=== PATIENT | male | born 1995 | race Caucasian/White ===

== ENCOUNTER 2017-07-19 18:34 | Emergency (ER) | payer SELFPAY ==
[~2017-07-19] VITALS: Ht 182.9 cm; Wt 67.7 kg
[2017-07-19 18:36] VITALS: BP 127/80; PULSE 152; RESP 18; TEMP 101.7; O2SAT 98
[2017-07-19 19:42] VITALS: PULSE 104; RESP 20; O2SAT 100
[2017-07-19] MEDS ORDERED: ACETAMINOPHEN 500 MG CPLT PO ONE (19:45)
[2017-07-19] MEDS ORDERED: OSEL75 PO (20:12)
--- NOTE | 2017-07-19 20:13 | PD ---
HPI Chief Complaint: Cold / Flu Symptoms Time Seen by Provider: 19:31 Travel History International Travel<30 days: No Contact w/Intl Traveler<30days: No Traveled to known affect area: No History of Present Illness HPI This is a 22-year-old male here with flulike illness times one day. He is reporting fever, body aches, cough. His sister who they live with is positive for influenza A. Symptom severity is moderate. He has not attempted any over- the-counter medications. No aggravating or alleviating factors. PFSH Past Medical History Asthma: Yes Anxiety: No Depression: No Cardiovascular Problems: No Diminished Hearing: No Gastrointestinal Disorders: Yes (HX OF GASTRITIS) Musculoskeletal: Yes (FRACTURE LEFT WRIST 2006) Neurologic: No Psychiatric: No Respiratory: Yes (only as a kid) Integumentary: Yes (MRSA) Immunizations Current: Yes Tetanus Vaccination: Unknown Influenza Vaccination: No ?: Not Past Surgical History Eye Surgery: Yes (as a kid) Other Surgery: Yes (biosy on neck and eye surgery, I and D on Face) Social History Alcohol Use: Yes (OCCASIONALLY) Tobacco Use: Yes (1 PPD) Substance Use: Yes (pot) Allergies-Medications (Allergen,Severity, Reaction): Coded Allergies: *MDRO Multi-Drug Resistant Organism (Unverified Adverse Reaction, Unknown , 07/19/17) MRSA PCR Screen negative 01/06/15. Reported Meds & Prescriptions Reported Meds & Active Scripts Active No Active Prescriptions or Reported Medications Review of Systems Except as stated in HPI: all other systems reviewed are Neg General / Constitutional: Positive: Fever Eyes: No: Visual changes HENT: Positive: Sore Throat, Congestion, No: Headaches Cardiovascular: No: Chest Pain or Discomfort Respiratory: Positive: Cough Gastrointestinal: No: Abdominal Pain Genitourinary: No: Dysuria Physical Exam Narrative GENERAL: A 22-year-old male Non toxic appearing. SKIN: Warm and dry. No rash HEAD: Normocephalic. EYES: No injection or drainage. Ear/nose/throat: No TM erythema clear nasal discharge. Mild pharyngeal erythema without tonsillar hypertrophy or exudate. NECK: Supple. No meningismus CARDIOVASCULAR: Regular rate and rhythm RESPIRATORY: Breath sounds equal bilaterally. No accessory muscle use. No wheezing rales or rhonchi GASTROINTESTINAL: Abdomen soft, non-tender, nondistended. MUSCULOSKELETAL: No cyanosis, or edema. BACK: No CVA tenderness. Data Data Last Documented VS Vital Signs Date Time Temp Pulse Resp B/P (MAP) Pulse Ox O2 Delivery O2 Flow Rate FiO2 07/19/17 19:42 104 20 100 Room Air 07/19/17 18:36 101.7 127/80 (96) Orders Orders Acetaminophen (Tylenol) (07/19/17 19:45) MDM Medical Decision Making Medical Screen Exam Complete: Yes Emergency Medical Condition: Yes Differential Diagnosis Influenza, pneumonia, bronchitis Narrative Course This is a 22-year-old male with flulike illness. He has exposure to influenza a in his home. He is nontoxic appearing. His vital signs were noted to be abnormal in triage. He was febrile and tachycardic. On recheck his heart rate was 104. He was given a dose of Tylenol which reduced his fever. He is stable and ready for discharge Diagnosis Primary Impression: Influenza-like illness Referrals: Primary Care Physician Additional Instructions: Tylenol and ibuprofen as needed for pain. Stable hydrated by drinking plenty of water. Scripts Oseltamivir (Tamiflu) 75 Mg Cap 75 MG PO BID for Mgmt Viral Infection for 5 Days, #10 CAP 0 Refills Prov: Wendi Gomez 07/19/17 Disposition: 01 DISCHARGE HOME Condition: Stable Wendi Gomez Jul 19, 2017 20:13
[2017-07-19] MEDS ORDERED: IBUPROFEN 800 MG TAB PO ONE (20:30)
[2017-07-19] MEDS ORDERED: OSELTAMIVIR PHOSPHATE 75 MG CAP PO ONE (20:30)
[2017-07-19 20:51] VITALS: TEMP 99.3
== END 2017-07-19 20:52 | disposition home or self-care (01) ==
LOC: PHEFT 18:34
DX: R50.9 Fever, unspecified (principal); R05 Cough; R52 Pain, unspecified; J45.909 Unspecified asthma, uncomplicated; F17.210 Nicotine dependence, cigarettes, uncomplicated
CPT/HCPCS: 99283